=== PATIENT | male | born 1935 | race Caucasian/White ===

== ENCOUNTER 2016-05-31 06:31 | Day surgery (SDC) | payer MEDICARE, OTHER ==
[~2016-05-31 06:31] MED LIST: ACTOS30 PO; ALEVE220 MG PO; GLUCPH PO; LISINOPRIL40 MG PO; NORV10 PO; NORV5 PO; ONGLYZA5 MG PO; PRAVACHOL40 MG PO; PRESERVISION A1 EAC1 PO; PRILOSEC OTC20 MG PO; PRINZIDE1 TA1 PO
== END 2016-05-31 09:45 | disposition home or self-care (01) ==
LOC: SDC 06:31
PROVIDERS: Orthopaedic Surgery
PROC: 3E0S3BZ Introduction of Anesthetic Agent into Epidural Space, Percutaneous Approach (ICD-10-PCS; 2016-05-31)
PROC: B01BYZZ Fluoroscopy of Spinal Cord using Other Contrast (ICD-10-PCS; 2016-05-31)
PROC: 3E0S33Z Introduction of Anti-inflammatory into Epidural Space, Percutaneous Approach (ICD-10-PCS; principal; 2016-05-31 07:45)
DX: M54.16 Radiculopathy, lumbar region (principal); E11.9 Type 2 diabetes mellitus without complications; I10 Essential (primary) hypertension; Z87.891 Personal history of nicotine dependence; Z98.890 Other specified postprocedural states; Z98.49 Cataract extraction status, unspecified eye
CPT/HCPCS: 82962; J1040; J2250; J3010; Q9967